=== PATIENT | female | born 1970 | race Two or more races ===

== ENCOUNTER 2020-10-11 15:28 | Outpatient (CLI) | payer OTHER | END 2020-10-11 15:54 | disposition home or self-care (01) | LOC: RAD 15:28 | PROVIDERS: ATTEND Orthopaedic Surgery | DX: M25.562 Pain in left knee (principal) ==

== ENCOUNTER 2021-11-06 15:31 | Outpatient (CLI) | payer OTHER | END 2021-11-06 15:45 | disposition home or self-care (01) | LOC: LAB 15:31 | PROVIDERS: ATTEND Radiology Diagnostic Radiology | DX: I63.543 Cerebral infarction due to unspecified occlusion or stenosis of bilateral cerebellar arteries (principal) ==

== ENCOUNTER 2021-11-13 11:07 | Outpatient (CLI) | payer OTHER | END 2021-11-13 11:23 | disposition home or self-care (01) | LOC: TOM 11:07 | DX: I63.543 Cerebral infarction due to unspecified occlusion or stenosis of bilateral cerebellar arteries (principal) | CPT/HCPCS: 70496; 70498 ==